=== PATIENT | male | born 1970 | race Two or more races ===

== ENCOUNTER 2021-12-29 12:19 | Emergency (ER) | payer MEDICAID, OTHER ==
[~2021-12-29] VITALS: Ht 170.2 cm; Wt 77.1 kg
[2021-12-29 15:35] VITALS: BP 121/76
== END 2021-12-29 16:13 | disposition home or self-care (01) ==
LOC: ER 12:19
DX: M67.431 Ganglion, right wrist (principal)
CPT/HCPCS: 73130

== ENCOUNTER 2024-08-20 10:40 | Emergency (ER) | payer MEDICAID ==
[~2024-08-20] VITALS: Ht 172.7 cm; Wt 78.2 kg
--- NOTE | 2024-08-20 11:09 | ED.PDOC ---
GI ASSESSMENT HPI Comments 53-year-old male brought in by self, referred by primary physician who he saw 4 days ago for evaluation of right upper quadrant pain that he has had for the last 2 weeks intermittently. Patient states the pain is sharp, nonradiating, worse while sitting down, alleviated somewhat by standing up. Not associated with any fever, nausea, vomiting, diarrhea, constipation or dysuria. Patient states he is eating well. Chief Complaint: Abdominal Pain Time Seen by MD: 10:57 Primary Care Provider: none Allergies: Coded Allergies: NO KNOWN ALLERGIES (Unverified , 08/20/24) Home Meds Active Scripts Omeprazole Magnesium (Omeprazole) 20 Mg Tab, 20 MG PO DAILY, #30 TAB Prov:RAMIREZ WALSH MD 08/20/24 Acetaminophen (Tylenol Extra Strength) 500 Mg Tab, 1000 MG PO Q6HPRN PRN, #30 TAB Prn pain Prov:RAMIREZ WALSH MD 08/20/24 Dicyclomine Hcl (BENTYL CAPSULE) 10 Mg Cp, 2 CAP PO Q6HP PRN, #30 CAP 11 Refills Prn abdominal pain Prov:RAMIREZ WALSH MD 08/20/24 Past Medical History PAST MEDICAL HISTORY: Denies Surgical History: Denies all surgeries Family History Family History: Reviewed,noncontributory to illness, Unknown Social History Smoker: Non-Smoker Alcohol: Denies ETOH Use Drugs: Denies Drug Use Lives In: Home All Other Systems: Reviewed and Negative (Comprehensive systems review obtained and negative except for what is stated in the HPI.) Physical Exam General Appearance: No Apparent Distress HEENT: Other (Pupils symmetric, face symmetric, moist mucous membranes) Neck: Full Range of Motion, Normal Inspection Respiratory: Lungs Clear, No Accessory Muscle Use, No Respiratory Distress, Normal Breath Sounds Cardiovascular: No Edema, No JVD, Regular Rate/Rhythm Breast Exam: Deferred Gastrointestinal: RUQ, Soft, Tenderness, Other (Negative Miranda's sign) Genitalia: Deferred Pelvic: Deferred Rectal: Deferred Extremities: Normal inspection, Normal range of motion, Non-tender, No pedal edema Neurologic: Alert (Oriented x4), Normal Affect, Normal Mood, Other (Ambulatory without difficulty. No gross focal deficit.) Cerebellar Function: NOT DONE Reflexes: NOT DONE Skin: Dry, Normal Color, Warm Lymphatic: NOT DONE Was a procedure done? Was a procedure done?: No GI differential Dx Differential Diagnosis: Appendicitis, Cholangitis, Cholecystitis, Constipation, Diverticular disease, Gastritis/PUD, Gastroenteritis, Hepatitis, Inflammatory BD, Ischemic Bowel, Pancreatitis, UTI, Food Poisoning, Bacterial, Viral, Imp action, Stress Ulcer, Kidney Stone X-Ray, Labs, Meds, VS Vital Signs Date Time Temp Pulse Resp B/P (MAP) Pulse Ox O2 Delivery O2 Flow Rate FiO2 08/20/24 11:44 95 18 97 Room Air 08/20/24 11:44 98.7 95 18 119/79 (92) 97 98.7 08/20/24 11:36 98.7 94 20 119/79 (92) 97 98.7 08/20/24 11:00 99.3 102 16 122/86 (98) 98 Lab Test 08/20/24 11:22 08/20/24 10:59 Range/Units White Blood Count 4.7 4.4-10.8 10^3/uL Red Blood Count 5.30 4.5-5.90 10^6/uL Hemoglobin 15.3 13.5-17.5 g/dL Hematocrit 45.5 41.0-53.0 % Mean Corpuscular Volume 85.8 80.0-100.0 fL Mean Corpuscular Hemoglobin 28.9 28.0-32.0 pg Mean Corpuscular Hemoglobin Concent 33.7 32.0-36.0 g/dL Red Cell Distribution Width 13.0 11.8-14.3 % Platelet Count 267 140-450 10^3/uL Mean Platelet Volume 6.9 6.9-10.8 fL Neutrophils (%) (Auto) 57.6 37.0-80.0 % Lymphocytes (%) (Auto) 30.9 10.0-50.0 % Monocytes (%) (Auto) 9.5 0.0-12.0 % Eosinophils (%) (Auto) 1.6 0.0-7.0 % Basophils (%) (Auto) 0.4 0.0-2.0 % Neutrophils # (Auto) 2.7 1.6-8.6 10 ^3/uL Lymphocytes # (Auto) 1.4 0.4-5.4 10 ^3/uL Monocytes # (Auto) 0.4 0-1.3 10 ^3/uL Eosinophils # (Auto) 0.1 0-0.8 10 ^3/uL Basophils # (Auto) 0 0-0.2 10 ^3/uL Nucleated Red Blood Cells 0.1 % Sodium Level 140 136-145 mmol/L Potassium Level 4.0 3.5-5.1 mmol/L Chloride Level 102 98-107 mmol/L Carbon Dioxide Level 31 20-31 mmol/L Anion Gap 7 5-15 Blood Urea Nitrogen 12 9-23 mg/dL Creatinine 0.93 0.700-1.30 mg/dL Glomerular Filtration Rate Calc 99 >90 mL/min BUN/Creatinine Ratio 12.9 10.0-20.0 Serum Glucose 103 74-106 mg/dL Calcium Level 10.2 8.7-10.4 mg/dL Total Bilirubin 0.4 0.2-1.0 mg/dL Aspartate Amino Transferase (AST) 12 L 13-40 U/L Alanine Aminotransferase (ALT) 34 7-40 U/L Alkaline Phosphatase 77 46-116 U/L Total Protein 7.5 5.7-8.2 g/dL Albumin 4.8 3.2-4.8 g/dL Lipase 34 12-53 U/L Urine Color Yellow Yellow Urine Clarity Clear Clear Urine pH 5.5 5.0-9.0 Urine Specific [place] 1.028 1.001-1.035 Urine Protein Negative Negative Urine Ketones Negative Negative Urine Blood Trace H Negative /uL Urine Nitrite Negative Negative Urine Bilirubin Negative Negative Urine Urobilinogen Normal Negative mg/dL Urine Leukocyte Esterase Negative Negative /uL Urine RBC 1 0 - 3 /hpf Urine Microscopic WBC 1 0-3 /HPF Urine Squamous Epithelial Cells None seen <5 /hpf Urine Bacteria None seen None Seen /hpf Urine Mucus Few None Seen Urine Glucose Normal Normal mg/dL Current Medications Medications (Trade) Dose Ordered Sig/Rachel Route Start Time Stop Time Status Last Admin Ketorolac Tromethamine (Toradol Injection) 30 mg ONCE ONCE IV 08/20/24 11:15 08/20/24 11:16 DC 08/20/24 11:45 Pantoprazole Sodium (Protonix) 40 mg ONCE ONCE IV 08/20/24 11:15 08/20/24 11:16 DC 08/20/24 11:45 PROCEDURE(s): GBUS - GALLBLADDER REASON: RUQ pain ORDER NUMBER(s): [id number], ACCESSION NUMBER(s): [id number] INDICATION: RUQ pain TECHNIQUE: Multiple real-time sonographic images were obtained of the right upper quadrant. COMPARISON: None FINDINGS: The liver demonstrates homogenous echotexture without focal mass lesions. The liver measures 16cm. There is no intrahepatic or extrahepatic ductal dilatation. The common duct measures 0.5 mm. The gallbladder is without evidence of stone or sludge. The gallbladder wall measures 0.4 mm and is within normal limits. The right kidney measures 12 cm. The right kidney is normal in contour, size, and shape. The echogenicity is normal. There is no hydronephrosis. 4 cm right renal cyst. The pancreas is not well visualized due to overlying bowel gas. IMPRESSION: No sonographic evidence of gallstones or acute cholecystitis. EDURE(s): ABPL - CT AB PEL WO CON-NO ORAL OR IV REASON: RUQ pain ORDER NUMBER(s): [id number], ACCESSION NUMBER(s): [id number] CT ABDOMEN AND PELVIS WITHOUT CONTRAST CLINICAL HISTORY: RUQ pain TECHNIQUE: Multiple contiguous axial images of the abdomen and pelvis without intravenous contrast. The images were reformatted degenerate coronal and sagittal reconstructions. All CT scans at this medical facility are performed using dose modulation techniques as appropriate to a performed exam including the following:Automated exposure control was utilized; adjustment of the MA and/or KV according to patient size; and use of iterative reconstruction technique. Radiation Dose Information: CT Dose: CTDI volume is 11.7 mGy. Dose-length product is 677.4 mGy*cm Comparison: None FINDINGS: Evaluation of the abdomen and pelvis is limited without intravenous contrast. There is no evidence of nephrolithiasis or hydronephrosis. There is a 3.0 cm cyst in the upper pole of the right kidney. The liver demonstrates mild decreased attenuation compatible with hepatic steatosis. The gallbladder, pancreas, adrenal glands, and spleen appear within normal limits. There is no gross evidence of abdominal lymphadenopathy. There is no free fluid or free air. The stomach grossly appears unremarkable. The small and large bowel loops demonstrate normal caliber. A normal-appearing appendix is seen in the right lower quadrant abdomen. The abdominal aorta and IVC appear within normal limits. The bladder appears unremarkable for the degree of distention. Pelvic organ appears within normal limits. There is no gross evidence of a pelvic mass. There is no free fluid collection. Lung bases are clear. There is no acute osseous abnormality. IMPRESSION: 1. There is no acute process in the abdomen and pelvis. HS:Y X-Ray, Labs, Meds, VS Comment 53-year-old male with no significant past medical history referred by primary ph ysician for right upper quadrant pain for the last 2 weeks Vitals remarkable for initial heart rate 102, now normal Exam remarkable for right upper quadrant tenderness to palpation. No rebound or guarding. Negative Miranda's sign. Rhythm strip independently interpreted by me sinus tach, rate 100, no ectopy. CT abdomen and pelvis unremarkable Right upper quadrant ultrasound unremarkable CBC, CMP, lipase, UA unremarkable Patient treated with the following in the ED: Toradol 30 mg IV, Protonix 40 mg IV On re-evaluation, patient states pain has improved. Vitals were stable. Workup is essentially unremarkable, pain may be musculoskeletal or of other GI etiology. Patient appears stable for discharge with close outpatient follow-up with his primary physician for referral to a machine stone polisher for further evaluation of his abdominal pain. Rx Bentyl, Tylenol, omeprazole Time of 1ST Reevaluation: 12:52 Reevaluation 1ST: Improved Patient Education/Counseling: Diagnosis, Treatment, Need For Follow Up Family Education/Counseling: No Family Present Departure 1 Departure Time of Disposition: 12:52 Impression: Primary Impression: Right upper quadrant abdominal pain Disposition: 01 HOME / SELF CARE / HOMELESS Condition: Stable Referrals: DARCY JENSEN MD Additional Instructions: Your blood and urine tests were unremarkable. Your ultrasound and CT scans were also unremarkable. I have enclosed a reports below. Follow-up with your primary doctor in 1-2 days for referral to a machine stone polisher for further evaluation of your abdominal pain. Alternatively, you may follow-up directly with Dr. Jensen. I have prescribed pain medicine to take as needed. [address] [address] Ph: [phone] DIAGNOSTIC IMAGING Diagnostic Imaging Report : [id number] Signed PATIENT: BRENT SYLVESTER ACCT: [id number] UNIT: [id number] : 1970 LOC: ER ROOM / BED: / AGE / SEX: 53 / M ADM STATUS: REG ER SERVICE 1101 ORDERING PHYSICIAN: RAMIREZ WALSH MD PROCEDURE(s): GBUS - GALLBLADDER REASON: RUQ pain ORDER NUMBER(s): [id number], ACCESSION NUMBER(s): [id number] INDICATION: RUQ pain TECHNIQUE: Multiple real-time sonographic images were obtained of the right upper quadrant. COMPARISON: None FINDINGS: The liver demonstrates homogenous echotexture without focal mass lesions. The liver measures 16cm. There is no intrahepatic or extrahepatic ductal dilatation. The common duct measures 0.5 mm. The gallbladder is without evidence of stone or sludge. The gallbladder wall measures 0.4 mm and is within normal limits. The right kidney measures 12 cm. The right kidney is normal in contour, size, and shape. The echogenicity is normal. There is no hydronephrosis. 4 cm right renal cyst. The pancreas is not well visualized due to overlying bowel gas. IMPRESSION: No sonographic evidence of gallstones or acute cholecystitis. [place] [address] Ph: [phone] DIAGNOSTIC IMAGING Diagnostic Imaging Report : [id number] Signed PATIENT: BRENT SYLVESTER ACCT: [id number] UNIT: [id number] : 1970 LOC: ER ROOM / BED: / AGE / SEX: 53 / M ADM STATUS: REG ER SERVICE 1101 ORDERING PHYSICIAN: RAMIREZ WALSH MD PROCEDURE(s): ABPL - CT AB PEL WO CON-NO ORAL OR IV REASON: RUQ pain ORDER NUMBER(s): [id number], ACCESSION NUMBER(s): [id number] CT ABDOMEN AND PELVIS WITHOUT CONTRAST CLINICAL HISTORY: RUQ pain TECHNIQUE: Multiple contiguous axial images of the abdomen and pelvis without intravenous contrast. The images were reformatted degenerate coronal and sagittal reconstructions. All CT scans at this medical facility are performed using dose modulation techniques as appropriate to a performed exam including the following:Automated exposure control was utilized; adjustment of the MA and/or KV according to patient size; and use of iterative reconstruction technique. Radiation Dose Information: CT Dose: CTDI volume is 11.7 mGy. Dose-length product is 677.4 mGy*cm Comparison: None FINDINGS: Evaluation of the abdomen and pelvis is limited without intravenous contrast. There is no evidence of nephrolithiasis or hydronephrosis. There is a 3.0 cm cyst in the upper pole of the right kidney. The liver demonstrates mild decreased attenuation compatible with hepatic st eatosis. The gallbladder, pancreas, adrenal glands, and spleen appear within normal limits. There is no gross evidence of abdominal lymphadenopathy. There is no free fluid or free air. The stomach grossly appears unremarkable. The small and large bowel loops demonstrate normal caliber. A normal-appearing appendix is seen in the right lower quadrant abdomen. The abdominal aorta and IVC appear within normal limits. The bladder appears unremarkable for the degree of distention. Pelvic organ appears within normal limits. There is no gross evidence of a pelvic mass. There is no free fluid collection. Lung bases are clear. There is no acute osseous abnormality. IMPRESSION: 1. There is no acute process in the abdomen and pelvis. HS:Y e-Prescriptions Omeprazole Magnesium (Omeprazole) 20 Mg Tab 20 MG PO DAILY, #30 TAB Prov: RAMIREZ WALSH MD 08/20/24 Acetaminophen (Tylenol Extra Strength) 500 Mg Tab 1000 MG PO Q6HPRN PRN, #30 TAB Prn pain Prov: RAMIREZ WALSH MD 08/20/24 Dicyclomine Hcl (BENTYL CAPSULE) 10 Mg Cp 2 CAP PO Q6HP PRN, #30 CAP 11 Refills Prn abdominal pain Prov: RAMIREZ WALSH MD 08/20/24 Discharged With: Self Critical Care Note Critical Care Time?: No Stability Stability form required: No Heart Score Heart Score: Heart Score Response (Comments) Value History N/A 0 EKG N/A 0 Age N/A 0 Risk Factors N/A 0 Troponin N/A 0 Total 0 RAMIREZ WALSH MD Aug 20, 2024 11:09
[2024-08-20 11:32] LABS: Urine Bacteria None Seen /hpf (None Seen)
[2024-08-20 11:38] LABS: Basophils # (auto) 0 10 ^3/uL (0-0.2); Basophils % (auto) 0.4 % (0.0-2.0); Eosinophils # (auto) 0.1 10 ^3/uL (0-0.8); Eosinophils % (auto) 1.6 % (0.0-7.0); Hematocrit 45.5 % (41.0-53.0); Hemoglobin 15.3 g/dL (13.5-17.5); Lymphocytes # (auto) 1.4 10 ^3/uL (0.4-5.4); Lymphocytes % (auto) 30.9 % (10.0-50.0); Mean Corpuscular Hemoglobin 28.9 pg (28.0-32.0); Mean Corpuscular Hgb Conc. 33.7 g/dL (32.0-36.0); Mean Corpuscular Volume 85.8 fL (80.0-100.0); Monocytes # (auto) 0.4 10 ^3/uL (0-1.3); Monocytes % (auto) 9.5 % (0.0-12.0); Neutrophils # (auto) 2.7 10 ^3/uL (1.6-8.6); Neutrophils % (auto) 57.6 % (37.0-80.0); Nucleated Red Blood Cells % 0.1 %; Platelet Count (auto) 267 10^3/uL (140-450); White Blood Cell 4.7 10^3/uL (4.4-10.8)
[2024-08-20 11:44] VITALS: BP 119/79; PULSE 95; RESP 18; TEMP 98.7; O2SAT 97
[2024-08-20] MEDS: PANTOPRAZOLE 40 MG/10 ML VIAL INJ IV ONE (11:45)
[2024-08-20] MEDS: KETOROLAC TROMETH 30 MG/ML 1ML VIAL IV ONE (11:45)
[2024-08-20 11:46] LABS: Urine Blood TRACE /uL (Negative); Urine Clarity Clear (Clear); Urine Color Yellow (Yellow); Urine Mucus FEW (None Seen); Urine Protein, UAD Negative (Negative); Urine Specific Gravity 1.028 (1.001-1.035); Urine Squamous Epithelial Cell None Seen /hpf (<5); Urine Urobilinogen Normal (Negative); Urine WBC 1 /HPF (0-3); Urine pH 5.5 (5.0-9.0)
[2024-08-20 11:58] LABS: Alanine Aminotransferase 34 U/L (7-40); Albumin 4.8 g/dL (3.2-4.8); Alkaline Phosphatase 77 U/L (46-116); Anion Gap 7 (5-15); BUN/Creatinine Ratio 12.9 (10.0-20.0); Blood Urea Nitrogen 12 mg/dL (9-23); Calcium 10.2 mg/dL (8.7-10.4); Carbon Dioxide 31 mmol/L (20-31); Chloride 102 mmol/L (98-107); Glucose 103 mg/dL (74-106); Sodium 140 mmol/L (136-145)
[2024-08-20 11:59] LABS: Bilirubin, Total 0.4 mg/dL (0.2-1.0); Total Protein 7.5 g/dL (5.7-8.2)
[2024-08-20 12:00] LABS: Aspartate Aminotransferase 12 U/L (13-40)
--- NOTE | 2024-08-20 12:15 | DVH ---
INDICATION: RUQ pain TECHNIQUE: Multiple real-time sonographic images were obtained of the right upper quadrant. COMPARISON: None FINDINGS: The liver demonstrates homogenous echotexture without focal mass lesions. The liver measure s 16cm. There is no intrahepatic or extrahepatic ductal dilatation. The common duct measures 0.5 mm. The gallbladder is without evidence of stone or sludge. The gallbladder wall measures 0.4 mm and is within normal limits. The right kidney measures 12 cm. The right kidney is normal in contour, size, and shape. The echog enicity is normal. There is no hydronephrosis. 4 cm right renal cyst. The pancreas is not well visualized due to overlying bowel gas. IMPRESSION: No sonographic evidence of gallstones or acute cholecystitis.
--- NOTE | 2024-08-20 12:15 | DVH ---
CT ABDOMEN AND PELVIS WITHOUT CONTRAST CLINICAL HISTORY: RUQ pain TECHNIQUE: Multiple contiguous axial images of the abdomen and pelvis without intravenous contrast. The images were reformatted degenerate coronal and sagittal reconstructions. All CT scans at this medical facility are performed using dose modulation techniques as appropriate t o a performed exam including the following:Automated exposure control was utilized; adjustment of the MA and/or KV according to patient size; and use of iterative reconstruction technique. Radiation Dose Information: CT Dose: CTDI volume is 11.7 mGy. Dose-length product is 677.4 mGy*cm Comparison: None FINDINGS: Evaluation of the abdomen and pelvis is limited without intravenous contrast. There is no evidence of nephrolithiasis or hydronephrosis. There is a 3.0 cm cyst in the upper pole o f the right kidney. The liver demonstrates mild decreased attenuation compatible with hepatic steatosis. The gallbladd er, pancreas, adrenal glands, and spleen appear within normal limits. There is no gross evidence of abdominal lymphadenopathy. There is no free fluid or free air. The stomach grossly appears unremarkable. The small and large bowel loops demonstrate normal caliber . A normal-appearing appendix is seen in the right lower quadrant abdomen. The abdominal aorta and IVC appear within normal limits. The bladder appears unremarkable for the degree of distention. Pelvic organ appears within normal evans its. There is no gross evidence of a pelvic mass. There is no free fluid collection. Lung bases are clear. There is no acute osseous abnormality. IMPRESSION: 1. There is no acute process in the abdomen and pelvis. HS:Y
[2024-08-20 12:24] LABS: Lipase 34 U/L (12-53)
[2024-08-20] MEDS ORDERED: OMEP-434 PO (12:59)
[2024-08-20] MEDS ORDERED: ACET-1304 PO (12:59)
[2024-08-20] MEDS ORDERED: DICY10CA PO (12:59)
== END 2024-08-20 13:13 | disposition home or self-care (01) ==
LOC: ER 10:40
DX: R10.11 Right upper quadrant pain (principal); Z79.899 Other long term (current) drug therapy
CPT/HCPCS: 36415; 74176; 76705; 80053; 81001; 83690; 85025; 96374; 96375; 99285; J1885; J2470